=== PATIENT | female | born 1960 | race African-American/Black ===

== ENCOUNTER 2018-09-25 15:37 | Emergency (ER) | payer OTHER ==
[~2018-09-25] VITALS: Ht 175.3 cm; Wt 131.0 kg
[2018-09-25] MEDS ORDERED: IBUPROFEN 600MG TABLET PO ONE (19:45)
[2018-09-25 19:47] VITALS: BP 171/86
== END 2018-09-25 19:53 | disposition home or self-care (01) ==
LOC: ER 15:47
DX: B48.8 Other specified mycoses (principal); I10 Essential (primary) hypertension
CPT/HCPCS: 99283